=== PATIENT | male | born 1990 | race African-American/Black ===

== ENCOUNTER 2018-09-09 23:25 | Emergency (ER) | payer SELFPAY ==
[~2018-09-09] VITALS: Ht 175.3 cm; Wt 68.0 kg
[2018-09-10 00:08] VITALS: BP 109/64
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
[2018-09-10] MEDS ORDERED: POLYTRIM OP SOL10 ML OPHTHALM (00:16)
[2018-09-10] MEDS ORDERED: CYCLOGYL2 M1 OP (00:16)
[2018-09-10 00:35] VITALS: BP 109/64
--- NOTE | 2018-09-10 00:35 | NUR ---
ER Nurse Note: Pt seen, treated, medically cleared for discharge by ERMD. Discharge instuctions and prescriptions given with repeat verbalization by pt. Emphasized to follow up with primay care provider; take whole course of medication. Explained each medication. All orders completed per ERMD orders. Pt a&ox4, VSS, no signs of distress. ID band removed. Eye patch applied. All questions answered per pt's questions. Pt left with all belongings, left with own transportation.
== END 2018-09-10 00:35 | disposition home or self-care (01) ==
LOC: EMR 23:58
DX: H20.9 Unspecified iridocyclitis (principal); F17.200 Nicotine dependence, unspecified, uncomplicated
CPT/HCPCS: 99282